=== PATIENT | female | born 1985 | race Caucasian/White ===

== ENCOUNTER 2017-11-29 17:04 | Emergency (ER) | payer BC, SELFPAY ==
[2017-11-29 17:05] VITALS: BP 162/104; PULSE 126; RESP 16; TEMP 37.2; O2SAT 98; BMI 24.2
[2017-11-29 17:51] VITALS: BP 159/109; PULSE 114; RESP 16; O2SAT 100
[2017-11-29] MEDS: Lidocaine/Epi/Tetracaine 50 ML 1 APPLIC TOPICAL (17:53)
--- NOTE | 2017-11-29 19:05 | ED.VISSUMM ---
- ER Visit Summary Date of Service: 11/29/17 Chief Complaint: Right mid faustin laceration History of Present Illness: The patient is a 32 F no senior past medical or surgical history. States last night around 6 PM she was carrying a glass doors of a cabinet shattered and lacerated her right lower leg. She states she clean the wound. Did not want to come in but has not been able to get it to stop bleeding since last night. Her tetanus is up-to-date. She denies any foreign body sensation. Physical Examination: Well-appearing young female. Vital signs are stable afebrile. HEENT exam unremarkable lungs clear to auscultation. Heart regular rhythm no murmur rate about 110. Abdomen soft nontender. She is moving all 4 extremities are neurovascularly intact. Her right lower leg mid faustin she is a horizontal laceration is 1-2 cm in length. There is no foreign body or infection. It is oozing blood but there is no pulsatile bleeding. Distally she is neurovascularly intact. Test Results: None Emergency Department Course and Treatment: Let was applied in the room. And it was cleaned with Shur-Clens. Wash with saline and explored. Locally anesthetized with 2 mL's of lidocaine. Once proper sac was obtained the wound was explored no foreign bodies were noted. It was irrigated. And closed using 2 simple interrupted 5-0 Ethilon sutures. Other proper hemostasis and wound closure was obtained. Patient tolerated procedure well. She was instructed on wound care and discharge. Treatment Plan: She will be started on Keflex 250 4 times daily for 4 days apart try to prevent any infection since this is more than 24 hours old. Disposition: Discharge Impression: Right lower leg 2 cm laceration with ER repair (delayed presentation). This note was generated with [employer] dictation software. It may contain incorrect words, spelling, and punctuation that were not noted in review of the chart prior to signing ED Disposition - Plan for ED Patient: Chief Complaint: Laceration Referrals: Anusha Martinez MD [Primary Care Provider] -
--- NOTE | 2017-11-29 19:08 | ED.DCSUM_ITS ---
- ER Visit Summary Date of Service: 11/29/17 Chief Complaint: Right mid faustin laceration History of Present Illness: The patient is a 32 F no senior past medical or surgical history. States last night around 6 PM she was carrying a glass doors of a cabinet shattered and lacerated her right lower leg. She states she clean the wound. Did not want to come in but has not been able to get it to stop bleeding since last night. Her tetanus is up-to-date. She denies any foreign body sensation. Physical Examination: Well-appearing young female. Vital signs are stable afebrile. HEENT exam unremarkable lungs clear to auscultation. Heart regular rhythm no murmur rate about 110. Abdomen soft nontender. She is moving all 4 extremities are neurovascularly intact. Her right lower leg mid faustin she is a horizontal laceration is 1-2 cm in length. There is no foreign body or infection. It is oozing blood but there is no pulsatile bleeding. Distally she is neurovascularly intact. Test Results: None Emergency Department Course and Treatment: Let was applied in the room. And it was cleaned with Shur-Clens. Wash with saline and explored. Locally anesthetized with 2 mL's of lidocaine. Once proper sac was obtained the wound was explored no foreign bodies were noted. It was irrigated. And closed using 2 simple interrupted 5-0 Ethilon sutures. Other proper hemostasis and wound closure was obtained. Patient tolerated procedure well. She was instructed on wound care and discharge. Treatment Plan: She will be started on Keflex 250 4 times daily for 4 days apart try to prevent any infection since this is more than 24 hours old. Disposition: Discharge Impression: Right lower leg 2 cm laceration with ER repair (delayed presentation ). This note was generated with [employer] dictation software. It may contain incorrect words, spelling, and punctuation that were not noted in review of the chart prior to signing ED Disposition - Plan for ED Patient: Chief Complaint: Laceration Referrals: Anusha Martinez MD [Primary Care Provider] -
--- NOTE | 2017-11-29 19:08 | ED.DEP ---
ED Disposition - Plan for ED Patient: Disposition: Home or Assisted Living Chief Complaint: Laceration Instructions: ED Laceration Ext Sutr Stap Tape Prescriptions: Cephalexin [Keflex] 250 mg PO Q6 #20 cap Referrals: Anusha Martinez MD [Primary Care Provider] - 7 Days for suture removal Additional Instructions: Clean thoroughly daily. Watch for any signs of infection. Apply antibiotic ointment once daily. Keflex 1 pill 4 times a day for 5 days total. Discussed Stitches out in 7 days.
== END 2017-11-29 19:16 | disposition home or self-care (01) ==
PROVIDERS: Emergency Provider Emergency Medicine; Family Provider Internal Medicine; PCP Internal Medicine
DX: S81.811A Laceration without foreign body, right lower leg, initial encounter (principal); W25.XXXA Contact with sharp glass, initial encounter; Y93.89 Activity, other specified; Y92.9 Unspecified place or not applicable; F32.9 Major depressive disorder, single episode, unspecified
CPT/HCPCS: 12001; 99283